=== PATIENT | male | born 1975 | race Caucasian/White ===

== ENCOUNTER 2022-06-19 10:03 | Emergency (ER) | payer OTHER ==
[~2022-06-19] VITALS: Ht 172.7 cm; Wt 80.0 kg
[2022-06-19] MEDS ORDERED: MECLIZINE 25MG TABLET PO ONE ×2 (10:45→16:00)
[2022-06-19 11:01] LABS: BASOPHILS % 0.4 % (0.0-2.0); EOSINOPHILS % 0.6 % (0.0-5.0); HEMATOCRIT. 43.7 % (42.0-52.0); LYMPHOCYTES % 13.2 % (20.0-50.0); MEAN CORPUSCULAR HEMOGLOBIN 30.3 pg (28.0-32.0); MEAN CORPUSCULAR VOLUME 88.1 fL (80.0-94.0); MEAN PLATELET VOLUME 7.9 fl (7.4-10.4); NEUTROPHILS % 81.8 % (40.0-76.0); PLATELET 252 x1000/uL (130-400); RED BLOOD CELL COUNT 4.96 mill/uL (4.7-6.1); RED CELL DISTRIBUTION WIDTH 14.5 % (11.6-14.6)
[2022-06-19 11:12] LABS: CHLORIDE 108 mEq/L (98-107)
[2022-06-19] MEDS ORDERED: DIAZEPAM 5 MG/ML 2ML CPJ IV ONE (12:45)
[2022-06-19] MEDS ORDERED: DIPHENHYDRAMINE 50MG/ML VIAL IV ONE (12:45)
[2022-06-19 13:13] VITALS: BP 153/94
[2022-06-19] MEDS ORDERED: POTASSIUM CHLORIDE 20MEQ TABLET SR PO ONE (17:00)
[2022-06-19] MEDS ORDERED: IOHEXOL-350 100 ML BOTTLE ONE (17:30)
== END 2022-06-19 18:30 | disposition left against medical advice (07) ==
LOC: ER 10:54
DX: R42 Dizziness and giddiness (principal); I10 Essential (primary) hypertension
CPT/HCPCS: 36415; 70450; 70496; 70498; 71045; 80053; 80320; 83690; 84484; 85025; 93005; 96374; 96375; 99285; J1200; J3360; J8597; Q9967; Z7610; G0480